=== PATIENT | female | born 1975 | race African-American/Black ===

== ENCOUNTER 2017-07-25 08:12 | Outpatient (CLI) | payer OTHER | END 2017-07-25 19:00 | disposition home or self-care (01) | LOC: MAMMO 08:12 | DX: N60.01 Solitary cyst of right breast (principal) ==

== ENCOUNTER 2018-02-13 12:44 | Outpatient (CLI) | payer OTHER | END 2018-02-13 18:20 | disposition home or self-care (01) | LOC: US 12:44 | DX: R92.8 Other abnormal and inconclusive findings on diagnostic imaging of breast (principal) ==

== ENCOUNTER 2021-07-22 12:48 | Outpatient (CLI) | payer OTHER | END 2021-07-22 20:03 | disposition home or self-care (01) | LOC: MAMMO 12:48 | PROVIDERS: ATTEND Internal Medicine | DX: Z12.31 Encounter for screening mammogram for malignant neoplasm of breast (principal) ==

== ENCOUNTER 2021-07-29 13:26 | Outpatient (CLI) | payer OTHER | END 2021-07-29 19:02 | disposition home or self-care (01) | LOC: US 13:26 | PROVIDERS: ATTEND Internal Medicine | DX: R92.8 Other abnormal and inconclusive findings on diagnostic imaging of breast (principal) ==

== ENCOUNTER 2021-08-20 12:12 | Outpatient (CLI) | payer OTHER | END 2021-08-20 19:17 | disposition home or self-care (01) | LOC: RAD 12:12 | PROVIDERS: ATTEND Family Medicine | DX: R10.9 Unspecified abdominal pain (principal); Z80.0 Family history of malignant neoplasm of digestive organs; Z84.1 Family history of disorders of kidney and ureter ==